=== PATIENT | female | born 1960 | race Caucasian/White ===

== ENCOUNTER 2016-06-24 07:21 | Emergency (ER) | payer OTHER ==
--- NOTE | 2016-06-24 07:50 | RAD ---
History: Cough for one week. Comparison: 08/25/2015. Technique: 2 views Findings: There is evidence of prior surgical changes with plate and fixation of the lower cervical spine. The heart size is stable. There is a small stable calcified granuloma within the peripheral right upper lobe. No consolidation, effusion or pneumothorax is visualized. The hilar and mediastinal structures are intact. Impression: 1. Evidence of prior granulomatous disease. 2. Post surgical changes with plate and screw fixation of the lower cervical spine. 3. No active intrathoracic process.
== END 2016-06-24 08:17 | disposition home or self-care (01) ==
LOC: ED 07:21
DX: B34.9 Viral infection, unspecified (principal); F17.210 Nicotine dependence, cigarettes, uncomplicated

== ENCOUNTER 2016-06-29 19:01 | Emergency (ER) | payer OTHER ==
[2016-06-29] MEDS ORDERED: MORPHINE SULFATE 4 MG/ML SYRINGE ONE (19:34)
--- NOTE | 2016-06-29 20:19 | RAD ---
EXAMINATION: ANKLE-LEFT 3 VIEW CLINICAL INDICATION: Fall injury. Left ankle pain. Initial encounter. COMPARISON:None FINDINGS: There is a trimalleolar fracture. There is a horizontal fracture of the medial malleolus. An oblique fracture extending posterior superior to anterior inferior involving the lateral malleolus. There is a vertical fracture extending into the joint space involving the posterior aspect of the distal tibia. There is very slight posterior translation of the talus at the tibiotalar joint. Soft tissue swelling is noted. IMPRESSION: Trimalleolar fracture of the left ankle as described. There is slight posterior displacement of the talus at the tibiotalar joint.
--- NOTE | 2016-06-29 20:43 | RAD ---
EXAMINATION : LOWER LEG LEFT HISTORY: Injury to left leg. Left lower committee pain. Initial encounter. COMPARISONS: Ankle radiograph dated 06/29/2016. FINDINGS: Trimalleolar fracture of the left ankle is again noted. Slight posterior displacement of the talus is unchanged. The proximal tibia and fibula appear intact with no proximal displaced fracture appreciated. Tibial talar joint space relationship is maintained. IMPRESSION: Trimalleolar fracture left ankle. Proximal tibia and fibula appear intact.
[2016-06-29] MEDS ORDERED: KETAMINE HCL 50 MG/1 ML 10ML VIAL ONE (21:01)
[2016-06-29] MEDS ORDERED: PROPOFOL 20 ML IV ONE (21:02)
[2016-06-29] MEDS ORDERED: SODIUM CHLORIDE 0.9% 500 ML ONE (21:03)
[2016-06-29] MEDS ORDERED: IBUPROFEN 600 MG TABLET ONE (22:25)
[2016-06-29] MEDS ORDERED: HYDROCODONE/ACETAMINOPHEN 5/325MG TABLET ONE (22:25)
[2016-06-29] MEDS ORDERED: DIPHTH,PERTUSS(ACELL),TET VAC 0.5 ML VIAL IM V ONE (22:26)
--- NOTE | 2016-06-30 07:41 | RAD ---
Exam: Two-view left ankle 2154 hours COMPARISON: 06/19/2016 1914 hours INDICATION: Postreduction. FINDINGS: AP and lateral views of the left ankle were obtained. Overlying cast material obscures fine bony detail. The recently described trimalleolar fracture of the left ankle demonstrate no significant interval change in position or alignment of the fracture fragments postreduction. Posterior malleolar fracture remains most displaced, with at least 4 mm of distraction of the fracture fragments. Ankle mortise is normally aligned. Soft tissue swelling is noted. IMPRESSION: No significant interval change in position or alignment of the fracture fragments of the trimalleolar left ankle fracture postreduction.
== END 2016-06-29 22:51 | disposition home or self-care (01) ==
LOC: ED 19:01
DX: S82.852A Displaced trimalleolar fracture of left lower leg, initial encounter for closed fracture (principal); Z23 Encounter for immunization; W00.0XXA Fall on same level due to ice and snow, initial encounter; Y92.9 Unspecified place or not applicable
CPT/HCPCS: 90715; 73610 ×2; 73590; 90471; 96375; 99284 ×2; 27840 ×2; 96374; A9270 ×2; J2270; J7040

== ENCOUNTER 2016-07-16 06:29 | Day surgery (SDC) | payer OTHER ==
[2016-07-16] MEDS ORDERED: CLINDAMYCIN 600 MG PREMIX 50 ML IV PRN (06:30)
[2016-07-16] MEDS ORDERED: IV START KIT ONE (06:41)
[2016-07-16] MEDS ORDERED: LACTATED RINGERS 1,000 ML ONE ×2 (06:41→08:51)
[2016-07-16] MEDS ORDERED: CLINDAMYCIN 600 MG PREMIX 50 ML IV ONE (06:42)
[2016-07-16] MEDS ORDERED: NERVE BLOCK PROCEDURAL TRAY 1 EACH ONE (07:42)
[2016-07-16] MEDS ORDERED: ROPIVACAINE 0.5% 30 ML VIAL ONE (07:42)
[2016-07-16] MEDS ORDERED: FENTANYL 100 MCG/2 ML VIAL ONE ×5 (08:05→14:50)
[2016-07-16] MEDS ORDERED: MIDAZOLAM HCL 1 MG/ML 2ML VIAL ONE ×2 (08:05→08:59)
[2016-07-16] MEDS ORDERED: PROPOFOL 20 ML IV ONE (08:58)
[2016-07-16] MEDS ORDERED: ROCURONIUM BROMIDE 10 MG/ML DOSE IV ONE ×4 (09:00→13:15)
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
[2016-07-16] MEDS ORDERED: PROMETHAZINE HCL 25 MG/ML VIAL IM PRN (10:09)
[2016-07-16] MEDS ORDERED: MORPHINE SULFATE 4 MG/ML SYRINGE IV PRN ×2 (10:09→16:57)
[2016-07-16] MEDS ORDERED: ONDANSETRON 4 MG/2ML 2 ML VIAL IV PRN ×2 (10:09→15:39)
[2016-07-16] MEDS ORDERED: LACTATED RINGERS 1,000 ML IV SCH (10:15)
[2016-07-16] MEDS ORDERED: EPHEDRINE SULFATE UD SYR 25 MG 25 MG/5 ML SYRINGE IV ONE ×2 (10:18→10:26)
[2016-07-16] MEDS ORDERED: PHENYLEPHRINE 10 MG/1 ML (1%) VIAL ONE (10:35)
[2016-07-16] MEDS ORDERED: MORPHINE SULFATE 10 MG/ML SYRINGE ONE (12:04)
[2016-07-16] MEDS ORDERED: ONDANSETRON 4 MG/2ML 2 ML VIAL ONE (13:55)
--- NOTE | 2016-07-16 14:35 | PCMBPN ---
Brief Post Op Note: Date of Procedure: 07/16/16 Preoperative Diagnosis: 1. left ankle posterior pilon fracture (trimalleolar fracture) Postoperative Diagnosis: 1. [Same] Procedure: left ankle pilon (trimalleolar fracture) open reduction and internal fixation Surgeon: Damián Guajardo MD Assist:Anila VAZQUEZ Anesthesia: GETA, left popliteal nerve block Findings: as expected, the patient had a fixation of the posterior malleolus ( vega and nephew posterior tibia plate), medial malleolus (4.0 x 2 screws measuring 50mm x 40mm), 7 hole 1/3 tubular plate on the posterior fibula Condition: extubated, stable vitals, transferred to pacu Complications: None IV Fluids:3000 mLs of LR Urine Output: 400 mLs Estimated Blood Loss: 150 mLs Tourniquet Time: 1 hour 45 min at 250mmHg Specimens: [N/A] Implants: See above Drains: [N/A] PLAN: NWB ON the LLE. Oxycodone for pain control. CLinda x 24 hours post-op. Lovenox for DVT prophlaxis.
[2016-07-16] MEDS: FENTANYL 100 MCG/2 ML VIAL IV PRN ×2 (14:52→15:00)
--- NOTE | 2016-07-16 15:00 | RAD ---
ANKLE LIMITED LEFT 1-2 VIEWS COMPARISON: Left ankle 3 views, 06/29/2016 HISTORY: Left ankle trimalleolar fracture open reduction internal fixation. Fluoroscopy time 146.4 seconds FINDINGS Views: Left ankle AP, AP with stress, and lateral Bones: Successful anatomic reduction of trimalleolar fracture. Satisfactory positioning of internal fixation hardware including plate and screws at the fibula, 2 screws of the medial malleolus, and plate and screws at the posterior malleolus. Joints: Normal Soft tissues: Normal IMPRESSION: 1. Successful anatomic reduction and open reduction and internal fixation of left ankle trimalleolar fracture.
--- NOTE | 2016-07-16 15:06 | RAD ---
ANKLE-LEFT 3 VIEW COMPARISON: Left ankle 3 views, intraoperative, 07/16/2016 HISTORY: Immediately postop open reduction internal fixation of left ankle trimalleolar fracture. FINDINGS: Views: Left ankle AP, mortise, lateral. Bones: Anatomic reduction of trimalleolar fracture using hardware. Joints: Normal. Soft tissues: Skin staple line lateral and skin staple line medial IMPRESSION: Successful open reduction internal fixation of left ankle trimalleolar fracture into anatomic alignment.
[2016-07-16] MEDS ORDERED: TRAMADOL HCL 50 MG TABLET PO PRN (15:39)
[2016-07-16] MEDS ORDERED: MORPHINE SULFATE 2 MG/ML SYRINGE IV PRN (15:39)
[2016-07-16] MEDS ORDERED: CALCIUM CARBONATE 500 MG TAB.CHEW PO PRN (15:39)
[2016-07-16] MEDS ORDERED: HYDROXYZINE HCL 25 MG TABLET PO PRN (16:10)
[2016-07-16] MEDS ORDERED: MORPHINE SULFATE 4 MG/ML SYRINGE ONE (16:13)
[2016-07-16] MEDS ORDERED: PUMP TUBING ONE (16:13)
[2016-07-16] MEDS: LACTATED RINGERS 1,000 ML IV SCH (16:18)
[2016-07-16] MEDS: MORPHINE SULFATE 2 MG/ML SYRINGE IV PRN ×2 (16:19→19:06)
[2016-07-16 16:33] VITALS: BMI 33.7
[2016-07-16] MEDS: CLINDAMYCIN 600 MG PREMIX 600 MG in Premix (D5W) 50 ml 1 EACH IV SCH (17:05)
[2016-07-16] MEDS: OXYCODONE HCL 5 MG TABLET PO PRN (17:12)
[2016-07-16] MEDS: ACETAMINOPHEN 500 MG TABLET PO SCH ×2 (17:12→20:42)
[2016-07-16] MEDS: HYDROXYZINE PAMOATE 25 MG CAPSULE PO PRN (17:12)
[2016-07-16] MEDS: ASCORBIC ACID 500 MG TABLET PO SCH (20:30)
[2016-07-16] MEDS: DOCUSATE SODIUM 100 MG CAPSULE PO SCH (20:30)
[2016-07-17] MEDS: OXYCODONE HCL 5 MG TABLET PO PRN ×5 (00:11→19:57)
[2016-07-17] MEDS: LACTATED RINGERS 1,000 ML IV SCH ×4 (00:13→16:38)
[2016-07-17] MEDS: CLINDAMYCIN 600 MG PREMIX 600 MG in Premix (D5W) 50 ml 1 EACH IV SCH (00:43)
[2016-07-17] MEDS: HYDROXYZINE PAMOATE 25 MG CAPSULE PO PRN ×4 (01:10→16:17)
[2016-07-17] MEDS: IBUPROFEN 600 MG TABLET PO PRN ×3 (01:10→18:19)
[2016-07-17] MEDS ORDERED: HYDROMORPHONE HCL 2 MG/ML SYRINGE IV PRN ×2 (01:34→01:41)
[2016-07-17] MEDS: ACETAMINOPHEN 500 MG TABLET PO SCH ×4 (03:53→21:50)
[2016-07-17 05:56] LABS: HEMATOCRIT 29.4 % (37.0-47.0); HEMOGLOBIN 9.5 gm/l (12.0-16.0); MEAN CELL VOLUME 98.7 fl (81.0-99.0); MEAN CORPUSCULAR HEMOGLOBIN 31.9 pg (27.0-31.0); MEAN CORPUSCULAR HGB CONC 32.3 g/dl (33.0-37.0); RED CELL DISTRIBUTION WIDTH 14.7 % (11.5-14.5)
[2016-07-17 06:18] LABS: CALCIUM 8.5 mg/dL (8.6-10.3)
[2016-07-17] MEDS: ASCORBIC ACID 500 MG TABLET PO SCH ×2 (08:48→20:00)
[2016-07-17] MEDS: DOCUSATE SODIUM 100 MG CAPSULE PO SCH ×2 (08:48→20:00)
[2016-07-17] MEDS: OXYCODONE HCL 10 MG TAB.SR PO SCH ×2 (08:48→20:00)
--- NOTE | 2016-07-17 09:45 | PDOC43 ---
- Subjective Subjective: Denies Pain Tolerable (Pt had a lot pain when the nerve block wore off. Still has some numbness and swelling in her right foot.), Denies Chest Pain , Denies Shortness of Breath, Denies Nausea, Denies Vomiting, Denies Fever - Objective Vital Signs Temperature 98.0 F 07/17/16 07:41 Pulse Rate 54 07/17/16 07:41 Respiratory Rate 18 07/17/16 07:41 Blood Pressure 90/50 07/17/16 08:20 O2 Saturation by Pulse Oximetry 98 07/17/16 07:41 Oxygen Delivery Method Nasal Cannula Oxygen Flow Rate 2 Laboratory 07/17/16 05:30 07/17/16 05:30 07/17/16 05:30 RBC 2.98 L MCH 31.9 H MCHC 32.3 L RDW 14.7 H Estimated GFR 57 L Calcium 8.5 L Active Medication Orders Category Date Time Status Acetaminophen [Tylenol] Med 07/16/16 15:39 Active 1,000 mg PO Q6H Ascorbic Acid [Vitamin C] Med 07/16/16 21:00 Active 500 mg PO BID Bisacodyl [Dulcolax] Med 07/19/16 14:[address] DAILY PRN Calcium Carbonate [Tums] Med 07/16/16 15:39 Active 1,000 - 2,000 mg PO Q2H PRN Docusate Sodium [Colace] Med 07/16/16 21:00 Active 100 mg PO BID Enoxaparin Sodium [Lovenox] Med 07/17/16 13:00 Active 40 mg SUB-Q Q24H Hydromorphone HCl [Dilaudid] Med 07/17/16 01:41 Active 1 - 2 mg IV Q3-4H PRN Hydroxyzine Pamoate [Vistaril] Med 07/16/16 17:09 Active 25 - 50 mg PO Q4H PRN Ibuprofen [Motrin] Med 07/16/16 15:39 Active 600 mg PO Q6H PRN Lactated Ringers 1,000 ml Med 07/16/16 15:39 Active IV 125 mls/hr Magnesium Hydroxide [Milk of Magnesia] Med 07/17/16 14:37 Active 30 ml PO DAILY PRN Ondansetron 4 mg/2ml Vial [Zofran] Med 07/16/16 15:39 Active 4 - 6 mg IV Q6H PRN Oxycodone HCl [Roxicodone] Med 07/16/16 15:39 Active 5 - 10 mg PO Q4H PRN Oxycodone Sr [Oxycontin] Med 07/17/16 09:00 Active 10 mg PO Q12HR Sodium Chloride 0.9% Flush [Normal Saline 10ml Flush] Med 07/16/16 15:39 Active 10 - 50 ml IV PRN PRN Sodium Chloride 0.9% Flush [Normal Saline 10ml Flush] Med 07/16/16 17:00 Active 10 ml IV Q8HR Tramadol HCl [Ultram] Med 07/16/16 15:39 Active 50 mg PO Q6H PRN Intake and Output 07/15/16 07/16/16 07/17/16 23:59 23:59 23:59 Intake Total 2364 Output Total 1350 Balance 1014 General: Afebrile - Left Lower Extremity Incision: Dressing Clean/Dry/Intact, Ecchymosis (Pt had 4/5 TF and TE. other muscles could not be examined in post-op splint) Motor: Extensor Hallucis Longus: 4/5 Gross Sensation to Light Touch: Present: Deep Peroneal Nerve, Superficial Peroneal Nerve (decreased due to nerve block) Capillary Refill: < 3 Seconds - Problems (1) Pilon fracture of left tibia Status: Acute - Disposition POD#1 s/p left posterior pilon (trimalleolar) frx NWB on the LLE. Lovenox on POD#1. Clinda x 24 hours post-op. Pain control is patient's biggest issue. Oxycodone and oxycontin for pain control and IV dilaudid for pain control Possible discharge to home on Tuesday
[2016-07-17] MEDS ORDERED: ENOXAPARIN SODIUM 40 MG/0.4 ML SYRINGE SUB-Q SCH (13:00)
[2016-07-17] MEDS ORDERED: MAGNESIUM HYDROXIDE 30 ML UDCUP PO PRN (14:37)
[2016-07-18] MEDS: OXYCODONE HCL 5 MG TABLET PO PRN ×3 (00:35→08:46)
[2016-07-18] MEDS: HYDROXYZINE PAMOATE 25 MG CAPSULE PO PRN ×3 (00:36→08:46)
[2016-07-18] MEDS: LACTATED RINGERS 1,000 ML IV SCH (00:51)
[2016-07-18] MEDS: ACETAMINOPHEN 500 MG TABLET PO SCH ×2 (03:54→08:46)
[2016-07-18 06:21] LABS: HEMATOCRIT 29.3 % (37.0-47.0); HEMOGLOBIN 9.3 gm/l (12.0-16.0); MEAN CELL VOLUME 99.7 fl (81.0-99.0); MEAN CORPUSCULAR HEMOGLOBIN 31.6 pg (27.0-31.0); MEAN CORPUSCULAR HGB CONC 31.7 g/dl (33.0-37.0); RED CELL DISTRIBUTION WIDTH 14.7 % (11.5-14.5)
[2016-07-18 06:40] LABS: CALCIUM 8.5 mg/dL (8.6-10.3)
[2016-07-18 07:00] VITALS: BP 120/79
--- NOTE | 2016-07-18 07:27 | PDOC43 ---
- Subjective Subjective: Reports Pain Tolerable (patient thinks she is doing much better today. She would like to go home. Pain is better control with oral agents), Denies Chest Pain, Denies Shortness of Breath, Denies Nausea, Denies Vomiting, Denies Fever - Objective Vital Signs Temperature 98.3 F 07/18/16 06:58 Pulse Rate 58 07/18/16 06:58 Respiratory Rate 16 07/18/16 06:58 Blood Pressure 120/79 07/18/16 06:58 O2 Saturation by Pulse Oximetry 95 07/18/16 06:58 Oxygen Delivery Method Room Air Oxygen Flow Rate 0 Laboratory 07/18/16 05:30 07/18/16 05:30 07/18/16 05:30 RBC 2.94 L MCV 99.7 H MCH 31.6 H MCHC 31.7 L RDW 14.7 H Calcium 8.5 L Active Medication Orders Category Date Time Status Acetaminophen [Tylenol] Med 07/16/16 15:39 Active 1,000 mg PO Q6H Ascorbic Acid [Vitamin C] Med 07/16/16 21:00 Active 500 mg PO BID Bisacodyl [Dulcolax] Med 07/19/16 14:37 Active 10 mg [place] DAILY PRN Calcium Carbonate [Tums] Med 07/16/16 15:39 Active 1,000 - 2,000 mg PO Q2H PRN Docusate Sodium [Colace] Med 07/16/16 21:00 Active 100 mg PO BID Enoxaparin Sodium [Lovenox] Med 07/17/16 13:00 Active 40 mg SUB-Q Q24H Hydromorphone HCl [Dilaudid] Med 07/17/16 01:41 Active 1 - 2 mg IV Q3-4H PRN Hydroxyzine Pamoate [Vistaril] Med 07/16/16 17:09 Active 25 - 50 mg PO Q4H PRN Ibuprofen [Motrin] Med 07/16/16 15:39 Active 600 mg PO Q6H PRN Lactated Ringers 1,000 ml Med 07/16/16 15:39 Active IV 125 mls/hr Magnesium Hydroxide [Milk of Magnesia] Med 07/17/16 14:37 Active 30 ml PO DAILY PRN Ondansetron 4 mg/2ml Vial [Zofran] Med 07/16/16 15:39 Active 4 - 6 mg IV Q6H PRN Oxycodone HCl [Roxicodone] Med 07/16/16 15:39 Active 5 - 10 mg PO Q4H PRN Oxycodone Sr [Oxycontin] Med 07/17/16 09:00 Active 10 mg PO Q12HR Sodium Chloride 0.9% Flush [Normal Saline 10ml Flush] Med 07/16/16 15:39 Active 10 - 50 ml IV PRN PRN Sodium Chloride 0.9% Flush [Normal Saline 10ml Flush] Med 07/16/16 17:00 Active 10 ml IV Q8HR Tramadol HCl [Ultram] Med 07/16/16 15:39 Active 50 mg PO Q6H PRN Intake and Output 07/16/16 07/17/16 07/18/16 23:59 23:59 23:59 Intake Total 4250 1588 Output Total 2019 975 Balance 2230 613 General: Afebrile - Left Lower Extremity Incision: Dressing Clean/Dry/Intact Motor: Extensor Hallucis Longus: 4/5 Gross Sensation to Light Touch: Present: Deep Peroneal Nerve, Superficial Peroneal Nerve Capillary Refill: < 3 Seconds (Patient has gross toe flexion and toe extension. Splint left in place today. Moderate swelling of the left foot.) - Problems (1) Pilon fracture of left tibia Status: Acute - Disposition POD#2 s/p left posterior pilon (trimalleolar) frx NWB on the LLE. Lovenox on POD#1. Pt has self-administered yesterday. Clinda x 24 hours post-op has been completed. Pain control is patient's biggest issue. Oxycodone and oxycontin for pain control and IV dilaudid for pain control along with vistaril. Discharge to home on Tuesday
[2016-07-18] MEDS: ASCORBIC ACID 500 MG TABLET PO SCH (08:46)
[2016-07-18] MEDS: OXYCODONE HCL 10 MG TAB.SR PO SCH (08:46)
[2016-07-18] MEDS: DOCUSATE SODIUM 100 MG CAPSULE PO SCH (08:46)
[2016-07-19] MEDS ORDERED: BISACODYL 10 MG SUP PR PRN (14:37)
--- NOTE | 2016-07-20 11:50 | DS ---
Celia TURNER [id number] : 1960 DATE OF ADMISSION: July 16, 2016 DATE OF DISCHARGE: July 18, 2016 HOSPITAL PROCEDURE: Left ankle posterior pilon and trimalleolar fracture open reduction internal fixation. SURGEON: Damián Guajardo M.D. HOSPITAL COURSE: The patient is a 55-year-old female who sustained a fall resulting in a closed left posterior pilon trimalleolar fracture. This was treated with an open reduction internal fixation on July 16, 2016. The patient tolerated the procedure well. A Carey catheter was left in place. The patient was given 24 hours of clindamycin due to an underlying penicillin allergy and was started postoperative day number one on Lovenox for DVT prophylaxis. The patient had a fair amount of pain requiring the use of oxycodone, OxyContin as well as intravenous morphine and Dilaudid for pain control after her nerve block were off. The patient had swelling on this side, it was elevated. During the course of postoperative day number one she did better. She was able to get up with physical therapy maintaining her nonweightbearing precautions. By the morning of postoperative day number two the patient had improved pain control. She was able to work with physical therapy and was able to be discharged home. We will plan on her following up in my office in one week. I anticipate nonweightbearing for close to six weeks. Job [id number] cc: Rashmi Little
--- NOTE | 2016-07-20 11:50 | OP ---
Celia TURNER : 1960 [id number] DATE OF PROCEDURE: July 16, 2016 PREOPERATIVE DIAGNOSIS: Left ankle posterior pilon (trimalleolar pattern) fracture. POSTOPERATIVE DIAGNOSIS: Left ankle posterior pilon (trimalleolar pattern) fracture. PROCEDURE: LEFT ANKLE PILON (TRIMALLEOLAR pattern) FRACTURE OPEN REDUCTION INTERNAL FIXATION. SURGEON: Damián Guajardo M.D. CHIEF GROWTH OFFICER: Anika Coppola ANESTHESIA: General along with a left popliteal single shot nerve block for postoperative pain control. FINDINGS: As expected, the patient had a large posterior malleolar piece. This was accessed through a posterior lateral approach. A [employer]hew posterior tibial plate five whole plate was placed. Distal screws were locking the other screws were nonlocking. Care was taken to make sure that the screws did not protrude out through the anterior cortex. In the medial malleolus the patient had two 4.0 Synthes cannulated screws measuring 50 mm and 40 mm and on the posterior aspect of the fibula the patient had a 7 hole one third tubular plate. CONDITION: The patient was extubated with stable vital signs and transferred to the PACU. COMPLICATIONS: None. INTRAVENOUS FLUIDS: 3000 mL of Lactate Ringer's. URINE OUTPUT: 400 mL ESTIMATED BLOOD LOSS: 150 mL SPECIMENS: N/A TOURNIQUET TIME: 1 hour and 45 minutes at 250 mmHg. IMPLANTS: See above. DRAINS: N/A PLAN: The patient will be nonweightbearing on the left lower extremity for close to six weeks. Oxycodone will be used for pain control, clindamycin for 24 hours postoperative and Lovenox for DVT prophylaxis. INDICATIONS: The patient is a 55-year-old female who has had medical problems associated with her back who sustained a fall resulting in a displaced trimalleolar fracture. On further evaluation of the fracture the fracture pattern is more similar to a posterior pilon injury with a large posterior malleolar piece which I told her is responsible for some of her persistent instability of her ankle. I spoke to the patient about this injury. I emphasized to the patient that I thought that surgical treatment would help better align fracture fractions. Due to the large intra-articular segment of this pilon injury my recommendation would be to place a to place a distal posterior tibial plate in addition to a more standard fibular plate and medial malleolar fixation. Because of the involvement of this piece I think that this will require hospitalization after surgery to make sure that she has adequate pain control. I spoke to the patient regarding my expectation. I told her that due to her injury we are trying to minimize how much postoperative traumatic arthritis she could develop as well as to minimize how much ankle stiffness she has. I spoke to her about the risks associated with surgery such as infection, wound breakdown or hematoma, need for possible removal of the hardware, irritation from the screws on surrounding tendons. Due to the fact of the location of the fracture I told her that there was a risk of injury to the sural nerve as well as the peroneal artery which branches come through the interosseous membrane. I told her that though she stopped smoking, I think that because of her immobility she is at increased risk for a blood clot that I would like to start her on a DVT prophylaxis which would include Lovenox. My plan would be to stop this in two weeks and transition to an aspirin. Initially, after surgery I think that she will have some pain control due to a popliteal nerve block, but we will have to figure out and oral pain regimen to help her. After answering all of her questions we were ready to begin the surgery. PROCEDURE DESCRIPTION: The patient was seen in the preoperative area where I confirmed that the left side was the correct side. I bivalved her cast and signed her left foot. She was then seen by the anesthesia team who talked about the risks and benefits of general anesthetic along with a single shot popliteal block and she agreed to have this performed. Under ultrasound guidance this was performed without difficulty. Next we confirmed that the H&P was updated, consent was signed and the patient was taken from the preoperative area to the operating theater. The patient was then transferred to a regular operating room bed where there was a beanbag. Our plan was to place her in a right lateral decubitus position, leaning forward to allow access to the posterior lateral aspect of the tibia. The patient was placed supine, a safety belt was placed and an SCD was placed on the right or down leg for intraoperative DVT prophylaxis. At this point the patient was then placed asleep under general anesthetic and intubated. She was placed in a right lateral decubitus position with and axillary roll in place and was rotated forward making sure that all bony prominences were well padded. A bone foam was placed between her legs to allow elevation of the left leg so that we could obtain appropriate AP and lateral of the leg. A nonsterile tourniquet would be placed on the left thigh for this case. It was set at 250 mmHg. With the leg and positioning set with the C-arm checked the patient's left lower extremity was prepped and draped in sterile fashion first with a chlorhexidine scrub and then paint. At this point in time we performed a final time out confirming that the left side was the correct side and that our planned procedure was an open reduction internal fixation of this trimalleolar fracture pattern of this posterior pilon piece. I confirmed that we had all the necessary equipment and that Ancef 2 g had been given approximately 20 minutes before this time out. With this time out confirmed I used an Esmarch to exsanguinate the limb. The tourniquet was then elevated. I then nathen my incision and placed an Ioban on the lateral aspect of the ankle. My incision was approximately 8 cm roughly posterior to the fibula, but also more lateral than the Achilles. I curved this more towards the edge of the fibula to allow access to by posterior fibula for this plating after the posterior tibial plate was placed. At this point I used a #15 blade to incise the skin, Bovie cautery was used to gain superficial skin bleeders. I dissected with a small 90 degree right ankle clamp. I identified the sural nerve which was crossing in the field. This was freed but was kept under direct visualization at all times. I identified the peroneal muscles as well as the Achilles and I identified the FHL. This was brought medially as I dissected down to the posterior tibia. I looked for any signs of branching peroneal artery vessels. At this point with the posterior tibia exposed. I proceeded to dorsiflex the foot exposing the piece. I used a periosteal elevator and freed up the apex of this piece and used a Hohmann retractor underneath the posterior musculature showing the extent of the piece. I then selected two different types of plates. One was a one third tubular plate, however I thought that because of the large fragment a wider plate would be a better buttress and I selected a [employer]ales [employer] Nephew five hole plate. This was placed on the bone. I used a pigtail pusher to reduce the fracture and placed a clamp. To do this I made a small stab incision on the anterior aspect of the tibia. I bluntly dissected down longitudinally and placed the anterior scooter there compressing this and placed a K-wire holding it in place. I then checked my lateral and confirmed that there was good compression of the articular surface as well as bringing the articular piece down. I did have some difficulty getting all fully congruent and had to release this clamp, free up the posterior malleolar piece before I was able to suck this down to a more anatomic position. At this point I placed proximal nonlocking screws. These were 2.7 mm drill for a 3.5 mm screw. Care to make sure that they were not proud off of the anterior surface of the tibia. Then I placed two locking screws distally to the posterior fragment. With this piece reduced I felt that the posterior inferior tib-fib ligament most likely would be solid. My plan would be to assess the syndesmosis after completing the rest of my fixation. I then dropped the tourniquet and turned my attention to the fibula. I worked on the anterior aspect of the peroneals exposing the posterior tibia. I selected a seven hole one third tubular plate and placed a lobster claw clamp after cleaning out the fracture site and reducing the fracture. I then proceeded to place proximal nonlocking screws in the more proximal segments and then placed one lag screw going from posterior to anterior across the fracture itself. With the fracture reduced I placed one more distal screw from posterior to anterior in the fibula. At this point I confirmed good hemostasis posteriorly. I proceeded to close the peroneal fascia with interrupted #0 Vicryl followed by interrupted #2-0 Vicryl and charbel. With this wound now closed I then proceeded to let down the beanbag with the help of the certified nursing assistant instructor and anesthesia. We were able to slide the patient to a supine position and readjust the bone foam. I could now address the medial malleolar fragment. To do this I obtained C-arm images. There was some slight the displacement. To improve this I made a 3 cm open incision over the medial malleolus. I identified a branch of the saphenous vein which was ligated. I then placed a clamp reducing this fragment and placed K-wires from the medial malleolus up into the tibial shaft. I planned to place two screws one was a 50 mm 4.0 Synthes partially threaded screw. The second was a Synthes partially threaded screw. Once drilled the screws were placed without incident. I was satisfied with its reduction. At this point I then irrigated the medial side and closed this with interrupted #0 Vicryl, #2-0 Vicryl and then closed this with charbel as well. The anterior aspect of the tibia had a suture placed at this point a DSD was applied onto the right leg. Prior to doing this we confirm that all sponge and needle counts are correct. The patient was then and an A/O splint. She was awoken without difficulty and taken to the recovery room. Because of the length of the procedure and the amount of surgery I thought that it would be appropriate due to her postoperative pain to admit her overnight. We will plan on nonweightbearing for close to six weeks. For this reason I think that she should be on DVT prophylaxis and we will start Lovenox on postoperative day number one with plans to switch her to aspirin in two weeks. We will continue antibiotics for 24 hours postoperatively. Job [id number] CC: Rashmi Little
== END 2016-07-18 10:45 | disposition home or self-care (01) ==
LOC: SDC 06:29 → MS 16:23 → SDC 07-18 10:45
PROVIDERS: ATTEND Orthopaedic Surgery
PROC: 0QSK04Z Reposition Left Fibula with Internal Fixation Device, Open Approach (ICD-10-PCS; principal; 2016-07-16)
PROC: 0QSH04Z Reposition Left Tibia with Internal Fixation Device, Open Approach (ICD-10-PCS; 2016-07-16)
PROC: 0QSH04Z Reposition Left Tibia with Internal Fixation Device, Open Approach (ICD-10-PCS; 2016-07-16)
DX: S82.852A Displaced trimalleolar fracture of left lower leg, initial encounter for closed fracture (principal); S82.872A Displaced pilon fracture of left tibia, initial encounter for closed fracture; W01.0XXA Fall on same level from slipping, tripping and stumbling without subsequent striking against object, initial encounter; Z98.1 Arthrodesis status; M81.0 Age-related osteoporosis without current pathological fracture; M19.90 Unspecified osteoarthritis, unspecified site; F41.9 Anxiety disorder, unspecified; Z72.0 Tobacco use; Z88.0 Allergy status to penicillin
CPT/HCPCS: 85027 ×2; 80048 ×2; 36415 ×2; 73610; 73600; 76000; 94010; 97116; 97161; 27822; A9270 ×40; J1170; J3010 ×5; J1650; J2270 ×4; J2795; J2370; J2250 ×2; J2405; J7120 ×7